=== PATIENT | male | born 1955 | race Caucasian/White ===

== ENCOUNTER 2024-08-06 17:52 | Inpatient (IN) | payer MEDICARE ==
[~2024-08-06] VITALS: Ht 180.3 cm; Wt 89.8 kg
[2024-08-06] MEDS ORDERED: SODIUM CHLORIDE 0.9% 1000ML 1,000 ML IV STA (18:06)
[2024-08-06] MEDS ORDERED: ACETAMINOPHEN 325 MG TAB PO STA (18:06)
[2024-08-06 18:17] LABS: BASOPHILS % 0.3 % (0.0-1.0); EOSINOPHILS # (AUTO) 0.1 (0.0-0.4); EOSINOPHILS % 0.6 % (0.0-6.0); HEMATOCRIT 50.7 % (38.2-49.6); LYMPHOCYTES % 26.5 % (18.0-39.1); MEAN CORPUSCULAR HEMOGLOBIN 33.5 pg (28-32); MEAN CORPUSCULAR HGB CONC 31.6 g/dL (31-35); MEAN CORPUSCULAR VOLUME 106.1 fL (81-99); MONOCYTES # (AUTO) 1.5 (0.2-0.8); MONOCYTES % 13.2 % (4.4-11.3); NEUTROPHILS # (AUTO) 6.6 (2.1-6.9); PLATELET COUNT 157 x10e3/uL (140-360); RED BLOOD COUNT 4.78 x10e6/uL (4.3-5.7); RED CELL DISTRIBUTION WIDTH 12.6 % (11.7-14.4); WHITE BLOOD COUNT 11.15 x10e3/uL (4.8-10.8)
[2024-08-06 18:33] LABS: ALBUMIN 4.1 g/dL (3.5-5.0); ALBUMIN/GLOBULIN RATIO 1.2 (0.8-2.0); BILIRUBIN,TOTAL 0.8 mg/dL (0.2-1.2); CALCIUM 8.9 mg/dL (8.4-10.2); CREATININE, SERUM 1.17 mg/dL (0.72-1.25); TOTAL PROTEIN 7.5 g/dL (6.5-8.1)
[2024-08-06 18:40] LABS: TROPONIN I 0.021 ng/mL (0-0.300)
[2024-08-06 18:45] LABS: CORONAVIRUS COVID-19 AG NEGATIVE (NEGATIVE); INFLUENZA B AG NEGATIVE (NEGATIVE)
[2024-08-06] MEDS ORDERED: LEVETIRACETAM 1000MG/100ML IV 100 ML IV ONE (18:45)
[2024-08-06 18:47] LABS: INFLUENZA A AG POSITIVE (NEGATIVE)
[2024-08-06] MEDS ORDERED: Morphine 4mg INJECTION 4 MG/ML INJ IV PRN (19:00)
[2024-08-06 19:01] VITALS: TEMP 98.7
[2024-08-06] MEDS: SODIUM CHLORIDE 0.9% 1000ML 1,000 ML IV STA (19:36)
[2024-08-06] MEDS: SODIUM CHLORIDE 0.9% 1000ML 1,000 ML IV SCH (19:36)
[2024-08-06] MEDS: ONDANSETRON HCL INJ 2MG/ML 2ML 2 MG/ML VIAL IV PRN (19:38)
[2024-08-06 20:00] VITALS: PULSE 61; RESP 16
[2024-08-06 20:05] VITALS: PULSE 62; RESP 18; O2SAT 95
[2024-08-06] MEDS ORDERED: TESTOSTERO200 MG/1 M IM (21:40)
[2024-08-06 22:38] VITALS: BP 131/76; PULSE 71; RESP 20; TEMP 98.1; O2SAT 98
[2024-08-06 22:40] VITALS: BP 131/76; PULSE 71; RESP 20; TEMP 98.1; O2SAT 98
[2024-08-07] VITALS (9 sets, daily range): BP systolic 129–146; BP diastolic 69–91; PULSE 59–68; RESP 17–18; TEMP 98–98.8; O2SAT 95–98
[2024-08-07 06:32] LABS: BASOPHILS % 0.3 % (0.0-1.0); EOSINOPHILS % 0.5 % (0.0-6.0); HEMATOCRIT 45.7 % (38.2-49.6); HEMOGLOBIN 14.6 g/dL (14.0-18.0); LYMPHOCYTES # (AUTO) 1.6 (1.0-3.2); LYMPHOCYTES % 24.9 % (18.0-39.1); MEAN CORPUSCULAR HEMOGLOBIN 33.6 pg (28-32); MEAN CORPUSCULAR HGB CONC 31.9 g/dL (31-35); MEAN CORPUSCULAR VOLUME 105.1 fL (81-99); MONOCYTES % 14.7 % (4.4-11.3); NEUTROPHILS # (AUTO) 3.9 (2.1-6.9); NEUTROPHILS % 59.3 % (38.7-80.0); PLATELET COUNT 138 x10e3/uL (140-360); RED BLOOD COUNT 4.35 x10e6/uL (4.3-5.7); RED CELL DISTRIBUTION WIDTH 12.3 % (11.7-14.4); WHITE BLOOD COUNT 6.55 x10e3/uL (4.8-10.8)
[2024-08-07 07:03] LABS: ALBUMIN 3.4 g/dL (3.5-5.0); ALBUMIN/GLOBULIN RATIO 1.3 (0.8-2.0); ANION GAP 13.9 mmol/L (8-16); BILIRUBIN,TOTAL 0.7 mg/dL (0.2-1.2); CALCIUM 7.9 mg/dL (8.4-10.2); CREATININE, SERUM 0.84 mg/dL (0.72-1.25); POTASSIUM 3.9 mmol/L (3.5-5.1)
[2024-08-07 07:09] LABS: TROPONIN I 0.021 ng/mL (0-0.300)
[2024-08-07 17:39] LABS: TROPONIN I 0.021 ng/mL (0-0.300)
[2024-08-08] VITALS: BP 122/80; PULSE 55; RESP 17; TEMP 98.3; O2SAT 96
[2024-08-08 04:00] VITALS: BP 133/84; PULSE 61; RESP 18; TEMP 98; O2SAT 96
[2024-08-08 05:41] LABS: TROPONIN I 0.026 ng/mL (0-0.300)
[2024-08-08] MEDS ORDERED: ATORVASTATIN CA20 MG PO (07:42)
[2024-08-08 08:00] VITALS: BP 149/70; PULSE 61; RESP 19; TEMP 97.6; O2SAT 97
[2024-08-08 09:11] VITALS: BP 149/70; PULSE 61; RESP 19; TEMP 97.6; O2SAT 97
[2024-08-08 11:40] VITALS: BP 131/73; PULSE 73; RESP 19; TEMP 98.2; O2SAT 98
== END 2024-08-08 13:25 | disposition home or self-care (01) | DRG 101 ==
LOC: ER 18:07 → ERHOLD 18:54 → MED/SURG2 20:38
PROVIDERS: ADMIT Internal Medicine; ATTEND Internal Medicine
DX: R56.9 Unspecified convulsions (principal); E78.5 Hyperlipidemia, unspecified; T40.425A Adverse effect of tramadol, initial encounter; I10 Essential (primary) hypertension; J10.89 Influenza due to other identified influenza virus with other manifestations; R53.81 Other malaise; Z11.52 Encounter for screening for COVID-19
CPT/HCPCS: 36415; 70450; 71045; 80053; 80320; 82550; 83605; 83690; 83880; 84484; 85025; 93005; 94799; 99284; J2405; J7030